=== PATIENT | female | born 1955 | race Caucasian/White ===

== ENCOUNTER 2020-05-31 08:48 | Outpatient (REF) | payer MEDICARE, SELFPAY ==
--- NOTE | 2020-05-31 08:52 | CT_ITS ---
EXAMINATION: CT SINUS WITHOUT CONTRAST CLINICAL INFORMATION: Nasal polyps. COMPARISON: None. TECHNIQUE: Axial 2 mm thin and reformatted 2 mm thin sagittal and coronal images of the sinuses were obtained. This CT examination was performed using dose optimization techniques as appropriate, variously including the following: *Automated exposure control *Adjustment of mA and/or kV according to patient size (this includes techniques or standardized protocols for targeted exams where dose is matched to indication/reason for exam; i.e. extremities or head) *Use of iterative reconstruction technique DLP: 77 mGy-cm. FINDINGS: There is diffuse mucoperiosteal thickening bilateral maxillary, ethmoid and sphenoid sinuses. The bony sinus treadwell are intact. There is mild obliteration of the left ostiomeatal complex and frontoethmoidal recess from mucosal thickening. The right ostiomeatal complex and right frontal recess are widely patent. The nasal septum appears midline. There is a small polyp arising from the right midline septum measuring 1.1 x 0.7 x 1.5 cm on axial image 26/8 and sagittal image 35/7. The turbinates are symmetrical. The nasopharyngeal and nasal cavity airways are patent. The bony sinus treadwell, lamina papyracea and cribriform plate are intact. The bony orbits are intact as well. Bilateral optic globe, optic nerves and the soft tissues are normal. ADDITIONAL RELEVANT FINDINGS: No periapical disease is seen. The TMJs articulate normally. The orbits and skull base soft tissues are unremarkable. The middle ear cavities and mastoid air cells are clear. Limited evaluation demonstrates no acute intracranial findings. CT/CT sinus wo con IMPRESSION: Small polyp or retention cyst right nasal cavity arising from the nasal septum. The nasal cavity airway is otherwise patent. There is chronic bilateral maxillary, ethmoid, cyst sphenoid sinusitis. The left ostiomeatal complex and frontoethmoidal recess are obstructed from the ostiomeatal complex. The bony sinus treadwell are intact.
== END 2020-05-31 08:49 | disposition home or self-care (01) ==
LOC: HO.CT 08:48
PROVIDERS: PCP Internal Medicine; Visit Provider Otolaryngology
DX: J33.9 Nasal polyp, unspecified (principal)
CPT/HCPCS: 70486

== ENCOUNTER 2021-03-23 10:59 | Day surgery (SDC) | payer MEDICARE, SELFPAY ==
[2021-03-19 10:32] VITALS: BMI 27.9
--- NOTE | 2021-03-22 14:24 | HO.ANESPROP2 ---
Documented by User: Regi Cage NP 03/22/21 14:24 HPI - Anesthesia Eval Consult details Narrative: 66yo F for Colonoscopy PMFSH Past Medical History Medical History (Updated 03/19/21 @ 10:35 by Jade Meadows RN) Asthma COVID-19 vaccine series completed Depression Elevated cholesterol Hypothyroid Surgical History Surgical History (Updated 03/19/21 @ 10:35 by Jade Meadows RN) H/O colonoscopy Hx of abdominoplasty Hx of sinus surgery Social History Social History Are you a primary managed care nurse to a significant other at home: No Do you presently have visiting nurse or other home services: No Patient Tobacco Use Status: Former Tobacco user Quit Date: age 21 Use of substances other than those prescribed or required for medical reasons: No Have you been hit, kicked, punched, or otherwise hurt by someone within the past year? If so, by whom?: No Are you DNR?: No Advance Directives Information Provided: Yes (as above noted) Advance Directives on File: No Recently lost weight without trying: No Eating poorly because of decreased appetite: No Nutrition Risks: No Nutritional Risk Poor oral hygiene: No Meds Allergies Allergy/AdvReac Type Severity Reaction Status Date / Time No Known Allergies Allergy Verified 03/19/21 10:38 Home Medications Medication Instructions Recorded Confirmed Last Taken Type albuterol sulfate 90 mcg/actuation 2 puff INHALATION Q4-6H PRN 03/19/21 03/19/21 Unknown History aerosol inhaler (ProAir HFA) bupropion HCl 300 mg 24 hr tablet, 300 mg PO QAM 03/19/21 03/19/21 Unknown History extended release levothyroxine 75 mcg tablet 75 mcg PO DAILY 03/19/21 03/19/21 Unknown History Exam Exam Date and Time: March 22, 2021 1424 Height,Weight and Vital Signs: Height 5 ft 5 in Weight 76.204 kg Assessment and Plan Assessment Anesthesia Assessment: Chart Reviewed Documented by User: Vielka Harding MD 03/23/21 11:41 [facility] Past Medical History Medical History (Updated 03/19/21 @ 10:35 by Jade Meadows RN) Asthma COVID-19 vaccine series completed Depression Elevated cholesterol Hypothyroid Family History Family history of problems with anesthesia: No Surgical History Surgical History (Updated 03/19/21 @ 10:35 by Jade Meadows RN) H/O colonoscopy Hx of abdominoplasty Hx of sinus surgery History of Problems with Anesthesia: No Social History Social History Are you a primary managed care nurse to a significant other at home: No Do you presently have visiting nurse or other home services: No Patient Tobacco Use Status: Former Tobacco user Quit Date: age 21 Use of substances other than those prescribed or required for medical reasons: No Have you been hit, kicked, punched, or otherwise hurt by someone within the past year? If so, by whom?: No Are you DNR?: No Advance Directives Information Provided: Yes (as above noted) Advance Directives on File: No Recently lost weight without trying: No Eating poorly because of decreased appetite: No Nutrition Risks: No Nutritional Risk Poor oral hygiene: No Meds Allergies Allergy/AdvReac Type Severity Reaction Status Date / Time No Known Allergies Allergy Verified 03/19/21 10:38 Home Medications Medication Instructions Recorded Confirmed Last Taken Type albuterol sulfate 90 mcg/actuation 2 puff INHALATION Q4-6H PRN 03/19/21 03/19/21 Unknown History aerosol inhaler (ProAir HFA) bupropion HCl 300 mg 24 hr tablet, 300 mg PO QAM 03/19/21 03/19/21 Unknown History extended release levothyroxine 75 mcg tablet 75 mcg PO DAILY 03/19/21 03/19/21 Unknown History Exam Height,Weight and Vital Signs: Height 5 ft 5 in Weight 76.204 kg Vital Signs Temp Pulse Resp BP Pulse Ox 03/23/21 11:32 97.5 F 61 18 128/55 L 97 Airway Mallampati Class: II TM Dist: >3cm Neck ROM: Full Partial: Upper and Lower Heart: RRR Lungs: CTAB Assessment and Plan Assessment Anesthesia Assessment: Anesthesia Plan Discussed Final Anesthetic Review Family History of Problems with Anesthesia: No History of Problems with Anesthesia: No NPO: Yes ASA Class: II Final Preanesthetic Review: No Changes in Pt Med Stat, Meds/Allgs Chart Reviewed, Consent Obtained/Reviewed and Anes Risks/Benef Reviewed Patient Risk: Low Procedure Risk: Low Assessment/Block/Sedation in SS: Assess/Block/Sedation-SS Anesthetic Plan Anesthetic Plan: MAC: Disposition: Standard PACU
[2021-03-23 11:32] VITALS: BP 128/55; PULSE 61; RESP 18; TEMP 36.4; O2SAT 97
[2021-03-23] MEDS: Lactated Ringers 1,000 ML 100 ML IVCONT (11:43)
--- NOTE | 2021-03-23 12:06 | MHC.SHP ---
Pre-Procedural Eval Section A Date of Service: 03/23/21 The patient is an INPATIENT: No Changes since office visit: No Cold of Flu in the past 2 weeks, No New Medical Problems, No Changes in Medication and No Patient answered all questions The History & Physical has been completed within 30 days and I have reviewed it.: Yes Section B Chief Complaint: screening Allergies: Allergies Allergy/AdvReac Type Severity Reaction Status Date / Time No Known Allergies Allergy Verified 03/19/21 10:38 Plan I have reviewed the history and physical and performed a pertinent physical examination on my patient. No changes have occurred unless specified.
[2021-03-23 12:36] VITALS: BP 97/60; PULSE 66; RESP 18; TEMP 36.1; O2SAT 96
--- NOTE | 2021-03-23 12:39 | PM.OP ---
Brief Operative Note Date of Service: 03/23/21 Pre-op diagnosis: screening Post-op diagnosis: same Procedure: colonosocpy Surgeon: Rodrigo Maynard Anesthesia: MAC Was an Apartment Maintenance used for this Procedure?: No Estimated blood loss (mL): 0 Pathology: none sent Condition: stable Disposition: PACU
[2021-03-23 12:51] VITALS: BP 114/60; PULSE 59; RESP 16; TEMP 36.1; O2SAT 99
--- NOTE | 2021-03-23 13:00 | OP_ITS ---
SURGEON: Rodrigo Maynard MD INDICATIONS: Colon cancer screening. PREOPERATIVE DIAGNOSIS: POSTOPERATIVE DIAGNOSIS: PROCEDURE PERFORMED: Colonoscopy to the terminal ileum. ESTIMATED BLOOD LOSS: COMPLICATIONS: ANESTHESIA: ASSISTANTS: SPECIMENS: MEDICATIONS: Monitored anesthesia care. DESCRIPTION OF PROCEDURE: History and physical performed. The risks and benefits of the procedure were explained to the patient. Informed consent was obtained. The patient was placed in the left lateral decubitus position. A digital rectal exam was performed and was found to be normal. The Olympus pediatric video colonoscope was introduced into the rectum and advanced to the cecum without difficulty. The cecum was identified by transillumination, palpation, and identification of ileocecal valve. Examination was performed and the scope was removed. She tolerated the procedure well and was taken to recovery area in stable condition. FINDINGS: The terminal ileum was examined and appeared normal. The visualized colonic mucosa was normal. The quality of the prep was good. No polyps were identified. Retroflexed examination was normal. IMPRESSION: Normal colonoscopy. RECOMMENDATIONS: 1. Follow up as needed. 2. Repeat colonoscopy is recommended in 10 years for average risk individuals. MD TORI Donnelly/MARIELLA / [id number]
== END 2021-03-23 13:15 | disposition home or self-care (01) ==
PROVIDERS: PCP Internal Medicine; Visit Provider Internal Medicine Gastroenterology
PROC: 0DJD8ZZ Inspection of Lower Intestinal Tract, Via Natural or Artificial Opening Endoscopic (ICD-10-PCS; CPT 45378; principal; 2021-03-23 12:00)
DX: Z12.11 Encounter for screening for malignant neoplasm of colon (principal); J45.909 Unspecified asthma, uncomplicated; E78.00 Pure hypercholesterolemia, unspecified; E03.9 Hypothyroidism, unspecified; F32.9 Major depressive disorder, single episode, unspecified; Z79.899 Other long term (current) drug therapy
CPT/HCPCS: G0121